=== PATIENT | male | born 1980 | race Caucasian/White ===

== ENCOUNTER 2019-02-25 04:14 | Emergency (ER) | payer OTHER ==
[2019-02-25 04:22] VITALS: TEMP 98.3
--- NOTE | 2019-02-25 04:43 | ED ---
Back Pain HPI - General Chief Complaint: Back Pain/Injury Stated Complaint: [facility]-Back injury Time Seen by Provider: 02/25/19 04:24 Source: patient - History of Present Illness Initial Comments: Feels a previously healthy 39-year-old gentleman presents the emergency department today from work for evaluation of low back pain. 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 Patient denies other injuries. He didn't hear any popping he has no numbness or tingling. - Related Data Previous Rx's Medication Instructions Recorded Ibuprofen [Motrin] 800 mg PO TID #30 tab 02/25/19 Lidocaine 5% Patch [Lidoderm] 1 patch TOPICAL DAILY #30 patch 02/25/19 Lidocaine 5% Patch [Lidoderm] 1 patch TOPICAL DAILY #30 patch 02/25/19 Methocarbamol [Robaxin-750] 750 mg PO TID #30 tablet 02/25/19 Allergies Allergy/AdvReac Type Severity Reaction Status Date / Time No Known Allergies Allergy Verified 02/25/19 05:21 Review of Systems ROS Statement: Those systems with pertinent positive or pertinent negative responses have been documented in the HPI. ROS Other: All systems not noted in ROS Statement are negative. Past Medical History Past Medical History: Hypertension Additional Past Surgical History / Comment(s): kidney stone removal Smoking Status: Current every day smoker Past Alcohol Use History: None Reported Past Drug Use History: None Reported General Exam - General Exam Comments Initial Comments: Physical Exam GENERAL: Patient is well-developed and well-nourished. Patient is nontoxic and well-hydrated and is in no distress. Morbidly obese HENT: Normocephalic, Atraumatic. EYES: PERRL, EOMI PULMONARY: Unlabored respirations. No audible rales rhonchi or wheezing was noted. CARDIOVASCULAR: There is a regular rate and rhythm without any murmurs gallops or rubs. ABDOMEN: Soft and nontender with normal bowel sounds. SKIN: Skin is clear with no lesions or rashes and otherwise unremarkable. : Deferred NEUROLOGIC: Patient is alert and oriented x3. Moving all extremities spontaneously MUSCULOSKELETAL: Normal extremities with adequate strength and full range of motion. No lower extremity swelling or edema. No calf tenderness. Paraspinal hypertonicity in left lumbar region PSYCHIATRIC: Normal psychiatric evaluation Course Vital Signs 02/25/19 04:18 Temperature 98.3 F Pulse Rate 98 Respiratory 16 Rate Blood Pressure 193/92 O2 Sat by Pulse 98 Oximetry Medical Decision Making - Medical Decision Making The patient was seen and evaluated, history was obtained from the patient Patient with mechanical back pain after lifting something heavy accent patient with no focal neurologic deficits no weakness History and physical consistent with a lumbar strain Patient will be treated symptomatically, patient declined any muscle relaxers here in the emergency department because he is driving home All questions pertaining care were answered return parameters were discussed patient was discharged home in stable condition Disposition Clinical Impression: Mechanical back pain Disposition: HOME SELF-CARE Condition: Stable Instructions (If sedation given, give patient instructions): Acute Low Back Pain (ED) Prescriptions: Lidocaine 5% Patch [Lidoderm] 1 patch TOPICAL DAILY #30 patch Lidocaine 5% Patch [Lidoderm] 1 patch TOPICAL DAILY #30 patch Ibuprofen [Motrin] 800 mg PO TID #30 tab Methocarbamol [Robaxin-750] 750 mg PO TID #30 tablet Is patient prescribed a controlled substance at d/c from ED?: No Referrals: Mary Jane Calderon MD [Primary Care Provider] - 1-2 days
[2019-02-25] MEDS ORDERED: KETOROLAC 30 MG/ML 1 ML VIAL IM STA (05:18)
[2019-02-25] MEDS ORDERED: LIDOCAINE 5% PATCH TOPICAL STA (05:18)
[2019-02-25 06:05] VITALS: BP 130/101; PULSE 84; RESP 19
== END 2019-02-25 06:00 | disposition home or self-care (01) ==
LOC: EC 04:14
DX: M54.5 Low back pain (principal); F17.200 Nicotine dependence, unspecified, uncomplicated
CPT/HCPCS: 99283; 96372; J1885

== ENCOUNTER 2020-02-03 04:48 | Emergency (ER) | payer OTHER ==
[2020-02-03 04:58] VITALS: BP 147/102; PULSE 74; RESP 18; TEMP 97.5
--- NOTE | 2020-02-03 05:07 | ED ---
Upper Extremity HPI - General Chief Complaint: Extremity Injury, Upper Stated Complaint: Rt Shoulder Injury - [facility] Time Seen by Provider: 02/03/20 05:06 Source: patient Mode of arrival: ambulatory Limitations: no limitations - History of Present Illness Initial Comments: Mamadou is a pleasant 39-year-old gentleman who presents to the ER today from work for evaluation of right shoulder injury. Patient reports that he was attempting to move a large roll of tape out of a machine when he got jammed people very hard and felt a pull in his shoulder and back in the trapezius distribution. Patient reports that about an hour and a half past after the incident but he continued to have a tight pain in the shoulder which prompted him to come to the ER for further evaluation. Patient denies hearing any popping or clicking he denies any neck pain. Patient reports it feels like the muscles very tight. He has no pain with range of motion of the shoulder. Denies other possible injuries. - Related Data Previous Rx's Medication Instructions Recorded Ibuprofen [Motrin] 800 mg PO TID #30 tab 02/25/19 Lidocaine 5% Patch [Lidoderm] 1 patch TOPICAL DAILY #30 patch 02/25/19 Lidocaine 5% Patch [Lidoderm] 1 patch TOPICAL DAILY #30 patch 02/25/19 Methocarbamol [Robaxin-750] 750 mg PO TID #30 tablet 02/25/19 Ibuprofen [Motrin] 800 mg PO TID #30 tab 02/03/20 Lidocaine [Lidoderm 5% Patch] 1 patch TRANSDERM DAILY #30 patch 02/03/20 Methocarbamol [Robaxin-750] 750 mg PO TID #30 tablet 02/03/20 Allergies Allergy/AdvReac Type Severity Reaction Status Date / Time No Known Allergies Allergy Verified 02/25/19 05:21 Review of Systems ROS Statement: Those systems with pertinent positive or pertinent negative responses have been documented in the HPI. ROS Other: All systems not noted in ROS Statement are negative. Past Medical History Past Medical History: Hypertension History of Any Multi-Drug Resistant Organisms: None Reported Additional Past Surgical History / Comment(s): kidney stone removal Past Psychological History: No Psychological Hx Reported Smoking Status: Never smoker Past Alcohol Use History: None Reported, Occasional Past Drug Use History: None Reported General Exam - General Exam Comments Initial Comments: Physical Exam GENERAL: Patient is well-developed and well-nourished. Patient is nontoxic and well-hydrated and is in no distress. HENT: Normocephalic, Atraumatic. EYES: PERRL, EOMI PULMONARY: Unlabored respirations. CARDIOVASCULAR: RRR Warm and well perfused extremities ABDOMEN: Non-distended SKIN: No rashes or bruising : Deferred NEUROLOGIC: Alert and oriented Normal speech Normal gait MUSCULOSKELETAL: Moving all extremities with no apparent injury PSYCHIATRIC: No SI/HI Limitations: no limitations Course Vital Signs 02/03/20 04:52 Temperature 97.5 F L Pulse Rate 74 Respiratory 18 Rate Blood Pressure 147/102 O2 Sat by Pulse 97 Oximetry Medical Decision Making - Medical Decision Making The patient was seen and evaluated history is obtained from patient history and physical exam are consistent with a strain to the trapezius however patient was required to have medical evaluation per his work requirements. At this time I do not feel that any further imaging is warranted patient is agreeable. Patient be discharged home with muscle relaxers and anti-inflammatories supportive care was discussed all questions pertaining care were answered return parameters discussed patient discharged home in stable condition. Disposition Clinical Impression: Strain of shoulder Disposition: HOME SELF-CARE Condition: Stable Instructions (If sedation given, give patient instructions): Muscle Strain (DC) Prescriptions: Lidocaine [Lidoderm 5% Patch] 1 patch TRANSDERM DAILY #30 patch Ibuprofen [Motrin] 800 mg PO TID #30 tab Methocarbamol [Robaxin-750] 750 mg PO TID #30 tablet Is patient prescribed a controlled substance at d/c from ED?: No Referrals: Mary Jane Calderon MD [Primary Care Provider] - 1-2 days
== END 2020-02-03 05:47 | disposition home or self-care (01) ==
LOC: EC 04:48
DX: S46.911A Strain of unspecified muscle, fascia and tendon at shoulder and upper arm level, right arm, initial encounter (principal); X50.1XXA Overexertion from prolonged static or awkward postures, initial encounter; Y92.69 Other specified industrial and construction area as the place of occurrence of the external cause; Y99.0 Civilian activity done for income or pay
CPT/HCPCS: 99283

== ENCOUNTER → 2020-02-04 | Outpatient (CLI) | payer OTHER ==
--- NOTE | 2020-02-04 10:42 | XR ---
EXAMINATION TYPE: XR shoulder complete RT DATE OF EXAM: 02/04/2020 CLINICAL HISTORY: Lifting injury with pain TECHNIQUE: Three views of the right shoulder are obtained. COMPARISON: None. FINDINGS: There is no acute fracture/dislocation evident in the right shoulder. On the first AP view there is suggestion of an oblique fracture through the distal clavicle but this is felt to be produc t of artifact from the overlying superior border of the scapula. Mild narrowing at the acromioclavicu lar and glenohumeral joints is present. Distal acromion morphology unremarkable. The visualized ribs are intact and unremarkable. IMPRESSION: There is no acute fracture or dislocation in the right shoulder.
== END | disposition home or self-care (01) ==
LOC: RADONCKCI 10:22
PROVIDERS: ATTEND Emergency Medicine
DX: S46.819A Strain of other muscles, fascia and tendons at shoulder and upper arm level, unspecified arm, initial encounter (principal); S16.1XXA Strain of muscle, fascia and tendon at neck level, initial encounter

== ENCOUNTER → 2020-05-03 | Outpatient (CLI) | payer OTHER ==
--- NOTE | 2020-05-03 12:46 | XR ---
EXAMINATION TYPE: XR clavicle RT DATE OF EXAM: 05/03/2020 COMPARISON: Right shoulder radiograph 02/04/2020 HISTORY: Persistent pain to superior aspect of shoulder/clavicle area since heavy lifting/strain inju ry 02/03/2020 TECHNIQUE: 2 views of the right clavicle obtained. FINDINGS: No evidence of clavicular fracture. The acromioclavicular joint space is within normal limi ts for width, however wider than 02/04/2020 shoulder radiograph comparison. Benign bone island of the r ight humerus IMPRESSION: 1. No acute fracture of the right clavicle. 2. Acromioclavicular joint width is within normal limits, however is mildly wider than 02/04/2020 shoul yolanda radiograph comparison. Findings may be projectional due to differences in technique. If there is clinical concern for acromioclavicular injury, radiographs of the bilateral clavicles can be obtained to evaluate for asymmetry.
== END | disposition home or self-care (01) ==
LOC: RADXRMAIN 12:24
PROVIDERS: ATTEND Emergency Medicine
DX: S46.819D Strain of other muscles, fascia and tendons at shoulder and upper arm level, unspecified arm, subsequent encounter (principal); S16.1XXD Strain of muscle, fascia and tendon at neck level, subsequent encounter; M25.511 Pain in right shoulder

== ENCOUNTER → 2020-06-02 | Outpatient (CLI) | payer OTHER | END | disposition home or self-care (01) | LOC: RADMRIMAIN 09:40 | PROVIDERS: ATTEND Orthopaedic Surgery | DX: Z53.9 Procedure and treatment not carried out, unspecified reason (principal) ==

== ENCOUNTER 2020-08-04 13:34 | Emergency (ER) | payer BC ==
[2020-08-04 13:58] VITALS: BP 145/88; PULSE 72; RESP 20; TEMP 97.8
--- NOTE | 2020-08-04 15:13 | ED ---
ENT HPI - General Chief complaint: ENT Stated complaint: SOB Time Seen by Provider: 08/04/20 14:29 Source: patient Mode of arrival: ambulatory Limitations: no limitations - History of Present Illness Initial comments: Patient is a 40-year-old male, presenting to the emergency Department with complaints of a sore throat and trouble breathing when he woke up this morning. 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 Patient denies any chest pain or shortness of breath at this time. Patient states he was diagnosed with Covid at the beginning of July and has had a lingering cough, he does not feel like this is any worse. He denies any fever, chills, ear pain. He denies any abdominal pain, no nausea or vomiting. He states he took an ibuprofen when he woke up about noon and feels only mild improvement. Patient has no further complaints at this time. Upon arrival to the ER, his vitals are stable. - Related Data Home Medications Medication Instructions Recorded Confirmed amLODIPine BESYLATE/BENAZEPRIL 1 cap PO HS 08/04/20 08/04/20 [amLODIPine BESYLATE/BENAZEPRIL 5-10 mg] Previous Rx's Medication Instructions Recorded methylPREDNISolone [Medrol Dose 4 mg PO DIRECTED #1 pack 08/04/20 Pack] Allergies Allergy/AdvReac Type Severity Reaction Status Date / Time No Known Allergies Allergy Verified 08/04/20 16:15 Review of Systems ROS Statement: Those systems with pertinent positive or pertinent negative responses have been documented in the HPI. ROS Other: All systems not noted in ROS Statement are negative. Past Medical History Past Medical History: Hypertension History of Any Multi-Drug Resistant Organisms: None Reported Additional Past Surgical History / Comment(s): kidney stone removal Past Psychological History: No Psychological Hx Reported Past Alcohol Use History: None Reported, Occasional Past Drug Use History: None Reported General Exam - General Exam Comments Initial Comments: GENERAL: Patient is well-developed and well-nourished. Patient is nontoxic and in no acute distress. HEAD: Atraumatic, normocephalic. EYES: Pupils equal round and reactive to light, extraocular movements intact, sclera anicteric, conjunctiva are normal. Eyelids were unremarkable. ENT: TMs normal, nares patent, uvula is slightly erythematous, mildly enlarged, tonsils are also mildly enlarged and slightly erythematous, no exudate at this time. Moist mucous membranes. NECK: Normal range of motion, supple without lymphadenopathy or JVD. LUNGS: Unlabored respirations. Breath sounds clear to auscultation bilaterally and equal. No wheezes rales or rhonchi. HEART: Regular rate and rhythm without murmurs, rubs or gallops. ABDOMEN: Soft, nontender, normoactive bowel sounds. No guarding, no rebound. No masses appreciated. : Deferred MUSCULOSKELETAL: Normal extremities with adequate strength and normal range of motion, no pitting or edema. No clubbing or cyanosis. NEUROLOGICAL: Patient is alert and oriented x 3. Motor and sensory are also intact. Cranial nerves II through XII grossly intact. Symmetrical smile. Normal speech, normal gait. PSYCH: Normal mood, normal affect. SKIN: Warm, Dry, normal turgor, no rashes or lesions noted. Limitations: no limitations Course Vital Signs 08/04/20 13:52 Temperature 97.8 F Pulse Rate 72 Respiratory 20 Rate Blood Pressure 145/88 O2 Sat by Pulse 98 Oximetry Medical Decision Making - Medical Decision Making Patient is a 40-year-old male here for a sore throat that started today about 3 hours prior to arrival. His vital signs are stable, afebrile. He does have some enlargement of the uvula, slightly erythematous and also some enlargement of the tonsils. Rest of exam is unremarkable. Strep test is negative, just extra shows no acute abnormalities. I discussed the patient is most likely viral. I will give him a shot of steroids today, continue with oral steroids tomorrow as well as ibuprofen. Patient is in agreement this plan of care. He is stable for discharge. I did recommend following up with his PCP in 1-3 days. Return parameters were discussed with the patient he verbalizes understanding. - Lab Data Lab Results 08/04/20 Range/Units 15:15 Group A Strep Rapid Negative (Negative) Disposition Clinical Impression: Acute viral pharyngitis Disposition: HOME SELF-CARE Condition: Stable Instructions (If sedation given, give patient instructions): Pharyngitis (ED) Additional Instructions: Please return to the Emergency Department if symptoms worsen or any other concerns. Take steroids as prescribed, starting tomorrow. Take ibuprofen every 6-8 hours for pain and swelling. Follow-up with your PCP in 1-3 days. Prescriptions: methylPREDNISolone [Medrol Dose Pack] 4 mg PO DIRECTED #1 pack Is patient prescribed a controlled substance at d/c from ED?: No Referrals: Mary Jane Calderon MD [Primary Care Provider] - 1-2 days
--- NOTE | 2020-08-04 15:19 | XR ---
EXAMINATION TYPE: XR chest 2V DATE OF EXAM: 08/04/2020 COMPARISON: Prior chest x-ray is unavailable. HISTORY: Cough, shortness of breath TECHNIQUE: Frontal and lateral views of the chest are obtained. FINDINGS: There is no focal air space opacity, pleural effusion, or pneumothorax seen. The cardiac silhouette size is within normal limits. The osseous structures are intact. IMPRESSION: No acute cardiopulmonary process.
[2020-08-04] MEDS ORDERED: methylPREDNISolone SOD SUCCI 125 MG/2 ML VIAL IM ONE (16:05)
== END 2020-08-04 16:20 | disposition home or self-care (01) ==
LOC: EC 13:34
DX: J02.8 Acute pharyngitis due to other specified organisms (principal); I10 Essential (primary) hypertension; Z79.899 Other long term (current) drug therapy; Z86.19 Personal history of other infectious and parasitic diseases
CPT/HCPCS: 87081; 87430; 71046; 99285; 96372; J2930

== ENCOUNTER → 2020-09-11 | Outpatient (CLI) | payer BC ==
[2020-09-11 11:55] LABS: Basophils # (A) 0.1 k/uL (0-0.2); Basophils % (A) 1 %; Eosinophils # (A) 0.2 k/uL (0-0.7); Eosinophils % (A) 3 %; HCT 41.6 % (39.0-53.0); HGB 13.9 gm/dL (13.0-17.5); Lymphocytes # (A) 2.4 k/uL (1.0-4.8); Lymphocytes % (A) 35 %; MCH 29.4 pg (25.0-35.0); MCHC 33.4 g/dL (31.0-37.0); MCV 88.1 fL (80.0-100.0); Mean Platelet Volume 6.6; Monocytes # (A) 0.6 k/uL (0-1.0); Monocytes % (A) 8 %; Neutrophils # (A) 3.6 k/uL (1.3-7.7); Neutrophils % (A) 51 %; Platelet Count 185 k/uL (150-450); RBC 4.72 m/uL (4.30-5.90); RDW 13.5 % (11.5-15.5); WBC 7.1 k/uL (3.8-10.6)
[2020-09-11 12:18] LABS: Potassium 4.8 mmol/L (3.5-5.1)
== END | disposition home or self-care (01) ==
LOC: LABPAT 09:49
PROVIDERS: ATTEND Orthopaedic Surgery
DX: Z01.812 Encounter for preprocedural laboratory examination (principal); M75.41 Impingement syndrome of right shoulder; I10 Essential (primary) hypertension
CPT/HCPCS: 36415; 80051; 85025; 93005

== ENCOUNTER 2020-09-14 11:03 | Day surgery (SDC) | payer BC, OTHER ==
[2020-09-07 15:16] VITALS: BMI 47.2
--- NOTE | 2020-09-13 18:43 | HP ---
HISTORY AND PHYSICAL DATE OF SURGERY: 09/14/2020 Mamadou Winters is a 40-year-old gentleman seen with progressive right shoulder pain. Options for treatment were discussed. He elected to proceed with arthroscopy. Consent was obtained. PAST MEDICAL HISTORY: Hypertension. PAST SURGICAL HISTORY: Lithotripsy. DAILY MEDICATIONS: None. ALLERGIES: NONE. SOCIAL HISTORY: He denies tobacco use. PHYSICAL EVALUATION OF THE RIGHT SHOULDER: Flexion 150, abduction 140. External rotation is 50 with some pain. Tenderness along the anterolateral acromion and rotator cuff insertion site. Impingement is positive at 90. Drop-arm sign is negative. Distal neurovascular exam is intact. RADIOGRAPHS: Right shoulder radiographs revealed a type 2 anterior acromion, moderate acromioclavicular joint osteoarthritis. Right shoulder MRI revealed a labral tear. IMPRESSION: 1. Right shoulder impingement with labral tear. 2. Right shoulder acromioclavicular joint osteoarthritis. 3. Hypertension. PLAN: Right shoulder arthroscopy with subacromial decompression, labral repair versus debridement and Kleber procedure. MMODL / IJN: [id number] /
[~2020-09-14 11:03] MED LIST: DEXAMETHASONE SOD PHOSPHATE 4 MG/ML 1 ML VIAL IV ONE; HYDROmorphone 0.5 MG/0.5 ML SYRINGE IVP PRN; LACTATED RINGERS 1,000 ML IV SCH; LIDOCAINE 1% (10MG/ML) FOR IV START INTRADERMA PRN; MIDAZOLAM 2 MG/2 ML VIAL IV PRN; ONDANSETRON 4 MG/2 ML VIAL IVP ONE; ceFAZolin 3 GM in SODIUM CHLORIDE 0.9% 100 ML IVPB PRN
[2020-09-14] MEDS ORDERED: MIDAZOLAM 2 MG/2 ML VIAL IV ONE (12:09)
[2020-09-14] MEDS ORDERED: fentaNYL (PF) 50 MCG/ML 2 ML AMP ONE (13:12)
[2020-09-14] MEDS ORDERED: GLYCOPYRROLATE 0.2 MG/ML 2 ML VIAL ONE (13:12)
[2020-09-14] MEDS ORDERED: NEOSTIGMINE 1 MG/ML 10 ML VIAL ONE (13:12)
[2020-09-14] MEDS ORDERED: ROPIVACAINE 5 MG/ML 30 ML VIAL ONE (13:12)
[2020-09-14] MEDS ORDERED: LIDOCAINE 1% INJ 10MG/ML (20 ML MDV) ONE (13:12)
[2020-09-14] MEDS ORDERED: MIDAZOLAM 2 MG/2 ML VIAL ONE (13:12)
[2020-09-14] MEDS ORDERED: SUCCINYLCHOLINE CHLORIDE VIAL 200 MG/10 ML VIAL IV ONE (13:12)
[2020-09-14] MEDS ORDERED: ROCURONIUM 10 MG/ML (10 ML VIAL) IV ONE (13:12)
[2020-09-14] MEDS ORDERED: DEXAMETHASONE SOD PHOSPHATE 4 MG/ML 1 ML VIAL ONE (13:12)
[2020-09-14] MEDS ORDERED: PROPOFOL 10 MG/ML 20 ML VIAL IV ONE (13:12)
--- NOTE | 2020-09-14 13:34 | P.ANPRN ---
Procedure Note - Anesthesia - Nerve Block Performed Right Interscalene Time Out Performed: Yes (:) Date of Procedure: 09/14/20 Procedure Start Time: Procedure Stop Time: Location of Patient: PreOp Indication: Acute Post-Operative Pain, Requested by Surgeon (Dr Massey) Sedation Type: Sedate with meaningful contact maintained Preparation: Sterile Prep Position: Supine Catheter: None Needle Types: Pajunk Needle Gauge: Other (see comment) (22g) Ultrasound used to visualize needle placement: Yes Ultrasound used to observe medication spread: Yes Injectate: 0.5% Ropivacaine (see comment for volume) (20cc + Decadron 4mg) Blood Aspirated: No Pain Paresthesia on Injection Noted: No Resistance on Injection: Normal Image Stored and Saved: Yes Events: Uneventful and Well Tolerated
--- NOTE | 2020-09-14 14:39 | P.OP ---
Date of Procedure: 09/14/20 Preoperative Diagnosis: Right shoulder impingement Postoperative Diagnosis: 1. Right shoulder impingement 2. Right shoulder acromioclavicular joint osteoarthritis 3. Right shoulder superficial rotator cuff tear Procedure(s) Performed: 1. Right shoulder arthroscopic subacromial decompression 2. Right shoulder arthroscopic Kleber procedure 3. Right shoulder arthroscopic debridement superficial rotator cuff tear Anesthesia: GETA, regional (Interscalene block) Surgeon: Stan Massey Estimated Blood Loss (ml): 5 Pathology: none sent Condition: stable Disposition: PACU Indications for Procedure: 40-year-old patient seen with progressive right shoulder pain. After having treatment options discussed, he elected to proceed with arthroscopy. Operative Findings: See description of procedure Description of Procedure: Patient underwent an interscalene block by department of anesthesia. The patient was then taken to the operative suite. The patient underwent a general anesthetic by the department of anesthesia. The patient was placed into a lateral position and secured. There was appropriate padding of the bony prominence. Right shoulder was then prepped and draped in normal sterile orthopedic fashion. We placed the extremity in 10 pounds of longitudinal traction. A posterior incision was now made for a posterior working portal site. The trocar and cannula were inserted into the glenohumeral joint. Arthroscopy was initiated. Spinal needle was now inserted anteriorly, to ascertain the anterior working portal site. An incision was now made in that area, a trocar was inserted followed by a probe. The labrum was probed and it was found to be stable. There was some mild superficial fraying along the anterior aspect of the labrum. That was debrided out. I again probed out the labrum both s uperiorly, anteriorly, posteriorly and inferiorly and there was no tear. The biceps was stable as long with the anchor. There was a significant chondromalacia present there were no loose bodies present instruments now removed from glenohumeral joint. Utilizing the posterior working portal site, the trocar and cannula were inserted into the subacromial space. Arthroscopy initiated. I made an incision 2 fingerbreadths lateral to the acromion. I introduced my trocar followed by my ArthroCare ablator. I now began ablating thick subacromial bursal tissue, which exposed the undersurface of the anterior acromion. There was diminished subacromial space. There was a very prominent anterior acromion. A motorized bur was introduced and a subacromial decompression was performed. I also excised some osteophytes off the inferior aspect of the distal clavicle. The AC joint was visualized and noted to be fairly arthritic along with what appeared to be some osteolysis of the distal clavicle. I performed arthroscopic Kleber procedure. There was good decompression of the acromioclavicular joint. I turned my attention to the rotator cuff tendon. Some superficial tearing along the midbody supraspinatus distally. I debrided that out. I thoroughly probed the area and did not find a full-thickness perforation. The tear was less than 50% of the tendon. The remaining tendon appeared stable. I injected 1 mL Renyte intra-articular in the area of the rotator cuff debridement site. Instruments now removed from the portal sites. All portal sites were approximated with nylon suture. Sterile dressings were applied followed by a shoulder sling. The patient was awakened, transferred to a bed, and taken to recovery in stable condition.
[2020-09-14 14:44] VITALS: TEMP 97
[2020-09-14 16:24] VITALS: BP 109/73; PULSE 88; RESP 16
== END 2020-09-14 17:21 | disposition home or self-care (01) ==
LOC: OR 11:03
PROVIDERS: ATTEND Orthopaedic Surgery
DX: M19.011 Primary osteoarthritis, right shoulder (principal); M75.111 Incomplete rotator cuff tear or rupture of right shoulder, not specified as traumatic; M94.211 Chondromalacia, right shoulder; M25.711 Osteophyte, right shoulder; M75.41 Impingement syndrome of right shoulder; I10 Essential (primary) hypertension; J45.909 Unspecified asthma, uncomplicated; K21.9 Gastro-esophageal reflux disease without esophagitis; Z79.899 Other long term (current) drug therapy
CPT/HCPCS: 64415; 76942; 29824; 29826; Q4212; J2250; J0330; J1100; J2710; J0690; J2405; J2001; J3010; J2795; J2704

== ENCOUNTER → 2021-02-26 | Outpatient (CLI) | payer BC ==
--- NOTE | 2021-02-26 13:46 | XR ---
EXAMINATION TYPE: XR chest 2V DATE OF EXAM: 02/26/2021 COMPARISON: 08/04/2020 TECHNIQUE: PA and lateral views submitted. HISTORY: Preop FINDINGS: The lungs are clear and there is no pneumothorax, pleural effusion, or focal pneumonia. Heart is en larged and there is biapical pleural thickening. No overt failure. IMPRESSION: 1. No acute process.
== END | disposition home or self-care (01) ==
LOC: RADXRMAIN 13:21
PROVIDERS: ATTEND Surgery Plastic and Reconstructive Surgery
DX: Z01.818 Encounter for other preprocedural examination (principal)
CPT/HCPCS: 71046

== ENCOUNTER 2021-03-08 08:28 | Day surgery (SDC) | payer BC ==
[2021-03-06 12:48] VITALS: BMI 49.7
[~2021-03-08 08:28] MED LIST changes: +HEPARIN SODIUM,PORCINE/PF 5,000 UNIT/0.5 ML SYRINGE SQ PRN
[2021-03-08] MEDS ORDERED: LIDOCAINE 1% (10MG/ML) FOR IV START INTRADERMA ONE (09:10)
[2021-03-08] MEDS ORDERED: ACETAMINOPHEN TAB 500 MG TAB PO PRN (09:14)
[2021-03-08] MEDS ORDERED: MELOXICAM 7.5 MG TAB PO PRN (09:14)
[2021-03-08] MEDS ORDERED: TAMSULOSIN 0.4 MG CAP.ER.24H PO PRN (09:14)
[2021-03-08] MEDS ORDERED: GABAPENTIN 300 MG CAP PO PRN (09:14)
--- NOTE | 2021-03-08 09:17 | P.GSHP ---
History of Present Illness H&P Date: 03/08/21 CHIEF COMPLAINT: Ventral hernia HISTORY OF PRESENT ILLNESS: The patient is a 41-year-old male who presents with a history of swelling and pain along the abdomen from a hernia. Now he presents for surgical intervention. PAST MEDICAL HISTORY: Please see list. PAST SURGICAL HISTORY: Please see list. MEDICATIONS: Please see list. ALLERGIES: Please see list. SOCIAL HISTORY: No illicit drug use FAMILY HISTORY: No reports of Crohn disease or ulcerative colitis. REVIEW OF ORGAN SYSTEMS: CONSTITUTIONAL: No reports of fevers or chills. No reports of weight loss despite prior attempts. GI: Denies any blood in stools or constipation. PHYSICAL EXAM: VITAL SIGNS: Stable GENERAL: Well-developed pleasant male in no acute distress. HEENT: No scleral icterus. Extraocular movements grossly intact. Moist buccal mucosa. NECK: Supple without lymphadenopathy. CHEST: Unlabored respirations. Equal bilateral excursions. CARDIOVASCULAR: Regular rate and rhythm. Distal 2+ pulses. ABDOMEN: Soft, nondistended. Palpable defect of the abdomen. No peritoneal signs. MUSCULOSKELETAL: No clubbing, cyanosis, or edema. ASSESSMENT: 1. Ventral hernia PLAN: 1. Recommend proceeding with robotic ventral hernia repair with mesh. 2. Benefits and risks of surgical intervention was discussed including possibility of open technique. 3. DVT prophylaxis. 4. Antibiotic prophylaxis. 5. Patient is elevated risk due to BMI over 50 Past Medical History Past Medical History: GERD/Reflux, Hypertension Additional Past Medical History / Comment(s): Hx kidney stones. GERD on/off. Off HTN Rx currently. Donates blood plasma weekly. Ventral hernia. History of Any Multi-Drug Resistant Organisms: None Reported Past Surgical History: Orthopedic Surgery Additional Past Surgical History / Comment(s): kidney stone removal. Rt shoulder surg 09/2020. Past Anesthesia/Blood Transfusion Reactions: No Reported Reaction Smoking Status: Former smoker - Past Family History Mother Family Medical History: No Reported History Medications and Allergies Home Medications Medication Instructions Recorded Confirmed Type Phentermine HCl [Adipex-P] 37.5 mg PO DAILY 03/06/21 03/06/21 History Allergies Allergy/AdvReac Type Severity Reaction Status Date / Time No Known Allergies Allergy Verified 03/08/21 08:56 Surgical - Exam Vital Signs Temp Pulse Resp BP Pulse Ox 96.3 F L 74 18 129/88 98 03/08/21 08:59 03/08/21 08:59 03/08/21 08:59 03/08/21 08:59 03/08/21 08:59
[2021-03-08 09:28] LABS: Basophils # (A) 0.1 k/uL (0-0.2); Basophils % (A) 1 %; Eosinophils # (A) 0.3 k/uL (0-0.7); Eosinophils % (A) 5 %; HCT 42.9 % (39.0-53.0); HGB 15.1 gm/dL (13.0-17.5); Lymphocytes % (A) 31 %; MCH 29.6 pg (25.0-35.0); MCHC 35.1 g/dL (31.0-37.0); MCV 84.3 fL (80.0-100.0); Mean Platelet Volume 6.5; Monocytes # (A) 0.5 k/uL (0-1.0); Monocytes % (A) 8 %; Neutrophils # (A) 3.3 k/uL (1.3-7.7); Neutrophils % (A) 52 %; Platelet Count 188 k/uL (150-450); RBC 5.09 m/uL (4.30-5.90); RDW 13.5 % (11.5-15.5); WBC 6.3 k/uL (3.8-10.6)
[2021-03-08 09:59] LABS: ALT 35 U/L (4-49); AST 41 U/L (17-59); African American GFR (CKD) >90 (>60 ml/min/1.73 sqM); Albumin 3.3 g/dL (3.5-5.0); Alkaline Phosphatase 65 U/L (38-126); Anion Gap 4 mmol/L; Blood Urea Nitrogen 7 mg/dL (9-20); Calcium 8.7 mg/dL (8.4-10.2); Carbon Dioxide 29 mmol/L (22-30); Chloride 105 mmol/L (98-107); Glucose 116 mg/dL (74-99); Non-African American GFR(CKD) >90 (>60 ml/min/1.73 sqM); Potassium 3.9 mmol/L (3.5-5.1); Sodium 138 mmol/L (137-145); Total Bilirubin 0.7 mg/dL (0.2-1.3); Total Protein 5.6 g/dL (6.3-8.2)
[2021-03-08] MEDS ORDERED: DEXAMETHASONE SOD PHOSPHATE 4 MG/ML 1 ML VIAL ONE (10:32)
[2021-03-08] MEDS ORDERED: MIDAZOLAM 2 MG/2 ML VIAL ONE (10:32)
[2021-03-08] MEDS ORDERED: ROPIVACAINE 5 MG/ML 30 ML VIAL ONE (10:32)
[2021-03-08] MEDS ORDERED: ROCURONIUM 10 MG/ML (5 ML VIAL) IV ONE (10:32)
[2021-03-08] MEDS ORDERED: LIDOCAINE 1% INJ 10MG/ML (20 ML MDV) ONE (10:32)
[2021-03-08] MEDS ORDERED: HYDROmorphone (PF) 1 MG/ML ONE (10:32)
[2021-03-08] MEDS ORDERED: fentaNYL (PF) 50 MCG/ML 2 ML AMP ONE (10:32)
[2021-03-08] MEDS ORDERED: NEOSTIGMINE 1 MG/ML 10 ML VIAL ONE (10:32)
[2021-03-08] MEDS ORDERED: SUCCINYLCHOLINE CHLORIDE VIAL 200 MG/10 ML VIAL IV ONE (10:32)
[2021-03-08] MEDS ORDERED: PROPOFOL 10 MG/ML 20 ML VIAL IV ONE (10:32)
[2021-03-08] MEDS ORDERED: GLYCOPYRROLATE 0.2 MG/ML 2 ML VIAL ONE (10:32)
[2021-03-08] MEDS ORDERED: LIDOCAINE 1%-EPI 1:100,000 20 ML VIAL SQ ONE (11:06)
[2021-03-08 12:12] VITALS: TEMP 96.9
--- NOTE | 2021-03-08 12:22 | P.OP ---
Date of Procedure: 03/08/21 Description of Procedure: SURGEON: HUONG CUADRA MD PREOPERATIVE DIAGNOSES: 1. Initial epigastric ventral hernia with incarceration 2. Morbid obesity due to excess calories, BMI 50.2 POSTOPERATIVE DIAGNOSES: 1. Initial epigastric ventral hernia with incarceration 2. Morbid obesity due to excess calories, BMI 50.2 OPERATION: 1. Robotic-assisted da Henrique Xi laparoscopic repair of initial incarcerated epigastric ventral hernia with mesh, ventralight ST mesh 11.4 cm Anesthesia: GETA, regional, local Estimated Blood Loss (ml): 5 Pathology: NONE COMPLICATIONS: None. Operative Findings: 1. Epigastric ventral hernia defect 2 cm 2. Fascia repaired using #1 V-lock suture INDICATIONS: The patient is a 41-year-old male who presents with painful ventral hernia. Surgical intervention with laparoscopic versus robotic and open techniques were reviewed. Placement of mesh was also reviewed. Benefits and risks were thoroughly described. Informed consent was obtained. DESCRIPTION OF PROCEDURE: The patient was brought into the operating room and laid in supine position. After general induction, the abdomen had been prepped and draped in standard sterile fashion. Ioban draping was also placed. Prior to incision, a timeout protocol was confirmed with surgical team regarding the patient's name including procedures to be performed. The robot was primed prior to the procedure. A field block using local anesthetic was placed along hernia site including the proposed port sites. Initial incision was made with an #11 blade along the left upper quadrant. A 0 degree 5 mm laparoscopic trocar entry was performed and insufflated. Three 8 mm ports were placed along the left lateral abdominal wall under direct localization after exchanging the 5-mm for an 8 mm port. Placements of the ports were 15 cm from the target anatomy and 10 cm apart. An accessory 12 mm port was placed at the left upper quadrant for exchange of mesh including sutures. The [employer]lip[employer]i Xi robot was previously primed, prepped and draped then docked from the right side of the patient onto the left side of the patient. I then sat at the robot Clustrix[employer] Xi console where working arms of the robot including Bovie cautery connected to robotic scissors, needle pile driver, and graspers placed by the esl instructional assistant. Incarcerated omental contents were found along the ventral hernia. The defect was reduced and umbilical hernia defect 2 x 3 cm. Next, hemostasis was checked with cautery. The hernia defects were oversewn using #1 nonabsorbable V-lock suture for each defect separately with fascial imbrication x 2. Next, ventralight ST mesh 11.4 cm was placed with the rough side towards the abdominal wall as to cover the epigastric including umbilical defect. 2-0 VLOC 9 absorbable inch sutures were used to fixate the mesh. A final endoscopic imaging was obtained. All instruments and pneumoperitoneum were evacuated from the abdominal cavity. The da Henrique Xi robot was undocked from the patient. I re-scrubbed into the case for closure of incisions. The fascia of the 12-mm port was probed and less than 8-mm in size. The incisions were reapproximated using 4-0 Monocryl in an interrupted subcuticular fashion. Liquid glue was applied to the skin after cleansing the skin with laurence l saline and dilute hydrogen peroxide. An abdominal binder was placed. An umbilical dressing was placed prior. At the end of the procedure, needle, sponge, and instrument count had been verified correct by equipment maintenance technician. The patient was taken to the postanesthesia care unit in stable condition. Plan - Discharge Summary Discharge Rx Participant: No New Discharge Prescriptions: New Acetaminophen Tab [Tylenol Tab] 1,000 mg PO Q6HR PRN #30 tablet PRN Reason: Pain Simethicone [Gas-X] 125 mg PO AC-TID PRN #20 capsule PRN Reason: Pain Ibuprofen [Motrin] 600 mg PO Q8HR PRN #30 tab PRN Reason: Pain Continue Phentermine HCl [Adipex-P] 37.5 mg PO DAILY Discharge Medication List Phentermine HCl [Adipex-P] 37.5 mg PO DAILY 03/06/21 [History] Acetaminophen Tab [Tylenol Tab] 1,000 mg PO Q6HR PRN #30 tablet 03/08/21 [Rx] Ibuprofen [Motrin] 600 mg PO Q8HR PRN #30 tab 03/08/21 [Rx] Simethicone [Gas-X] 125 mg PO AC-TID PRN #20 capsule 03/08/21 [Rx] Follow up Appointment(s)/Referral(s): Huong Cuadra MD [STAFF PHYSICIAN] - 03/13/21 Patient Instructions/Handouts: Laparoscopic Herniorrhaphy (IP), Umbilical Hernia Repair (DC) Activity/Diet/Wound Care/Special Instructions: DO NOT REMOVE UMBILICAL DRESSING. Using antibacterial soap. No lifting over 4 pounds 4 weeks, April 08December shower. No bathtub soaks for 2 weeks, March 22 Wear abdominal binder daily for comfort except for showering. Use ice along incisions for today to prevent swelling. Take tylenol, aleve/ibuprofen, simethicone scheduled for 3 days for best pain relief Discharge Disposition: HOME SELF-CARE
[2021-03-08 13:34] VITALS: RESP 16
[2021-03-08] MEDS ORDERED: LACTATED RINGERS 1,000 ML IV ONE ×2 (13:49)
[2021-03-08] MEDS ORDERED: IBUPROFEN 200 MG TAB PO ONE (14:01)
[2021-03-08 14:05] VITALS: BP 129/84; PULSE 69
[2021-03-08] MEDS ORDERED: SIMETHICONE 40 MG/0.6 ML DROPS 2,000 MG/30 ML BOTTLE PO ONE (14:14)
--- NOTE | 2021-03-08 19:08 | P.ANPRN ---
Procedure Note - Anesthesia - Nerve Block Performed Bilateral Rectus Abdominis Single Time Out Performed: Yes Date of Procedure: 03/08/21 Procedure Start Time: 09:53 Procedure Stop Time: 10:08 Location of Patient: PreOp Indication: Acute Post-Operative Pain, Requested by Surgeon Sedation Type: Sedate with meaningful contact maintained Preparation: Sterile Prep Position: Supine Needle Types: Pajunk Needle Gauge: 21 Ultrasound used to visualize needle placement: Yes Ultrasound used to observe medication spread: Yes Blood Aspirated: No Pain Paresthesia on Injection Noted: No Resistance on Injection: Normal Image Stored and Saved: Yes Events: Uneventful and Well Tolerated (ropi .5% 20cc plus dexamethasone 4mg bilaterally)
== END 2021-03-08 15:26 | disposition home or self-care (01) ==
LOC: OR 08:28
PROVIDERS: ATTEND Surgery Plastic and Reconstructive Surgery
DX: K43.6 Other and unspecified ventral hernia with obstruction, without gangrene (principal); K21.9 Gastro-esophageal reflux disease without esophagitis; I10 Essential (primary) hypertension; Z87.442 Personal history of urinary calculi; Z98.890 Other specified postprocedural states; Z87.891 Personal history of nicotine dependence; E66.01 Morbid (severe) obesity due to excess calories; Z68.43 Body mass index [BMI] 50.0-59.9, adult; Z79.899 Other long term (current) drug therapy
CPT/HCPCS: 49653; S2900; 64486; 64999; 80053; 85025

== ENCOUNTER 2021-04-10 11:09 | Day surgery (SDC) | payer BC ==
[2021-04-10 12:11] VITALS: BP 122/76; PULSE 82; RESP 16; TEMP 98
--- NOTE | 2021-04-10 17:31 | US ---
EXAMINATION TYPE: US guided soft tissue drainage DATE OF EXAM: 04/10/2021 HISTORY: Seroma postop anterior abdominal wall FINDINGS: Maximal barrier technique was utilized. The skin overlying a suitable path to the fluid in the anterior abdominal subcutaneous fat was localized with ultrasound and the overlying skin prepped and draped. Lidocaine was used for local anesthesia. Access was gained under direct ultrasound guid ance to the fluid with a 21-gauge needle. Ultrasound was utilized using sterile technique. 10 cc sero us sanguinous fluid returned. Needle was removed. Hemostasis achieved. No immediate complication and the patient remained in stable condition. No significant residual seroma. IMPRESSION: STATUS POST ULTRASOUND GUIDED SEROMA DRAINAGE, THIS PROCEDURE WAS PERFORMED BY THE UNDERS IGNED.
== END 2021-04-10 13:35 | disposition home or self-care (01) ==
LOC: RADPROMAIN 11:09
PROVIDERS: ATTEND Surgery Plastic and Reconstructive Surgery
DX: Z48.03 Encounter for change or removal of drains (principal)
CPT/HCPCS: 10030; 76942

== ENCOUNTER → 2021-11-30 | Outpatient (CLI) | payer BC ==
--- NOTE | 2021-11-30 15:20 | XR ---
Lumbar spine HISTORY: Low back pain 3 views the lumbar spine, no comparisons Lumbar vertebral bodies show preserved height, alignment, and bone mineralization. Spina bifida occul ta is noted at S1. Mild loss of disc height L4-5. No evident paraspinal mass. IMPRESSION: Mild degenerative disc change, consider lumbar MRI.
== END | disposition home or self-care (01) ==
LOC: RADXRMAIN 11:52
PROVIDERS: ATTEND Internal Medicine
DX: M51.37 Other intervertebral disc degeneration, lumbosacral region (principal)
CPT/HCPCS: 72100